=== PATIENT | female | born 1995 | race Caucasian/White ===

== ENCOUNTER 2020-09-03 20:44 | Emergency (ER) | payer OTHER ==
[~2020-09-03] VITALS: Ht 152.4 cm; Wt 40.8 kg
[2020-09-03 20:44] VITALS: BP 145/80
[2020-09-03] MEDS ORDERED: NEOM10DR11 OT (21:10)
== END 2020-09-03 21:18 | disposition home or self-care (01) ==
LOC: ER 20:49
DX: H60.92 Unspecified otitis externa, left ear (principal); Z88.1 Allergy status to other antibiotic agents; Z88.8 Allergy status to other drugs, medicaments and biological substances